=== PATIENT | male | born 1930 | race Caucasian/White ===

== ENCOUNTER 2018-03-16 11:56 | Day surgery (SDC) | payer MEDICARE, OTHER ==
[2018-03-16] VITALS (7 sets, daily range): BP systolic 136–155; BP diastolic 49–67; PULSE 44–51; TEMP 96.9–97.4
[~2018-03-16] VITALS: Ht 171.4 cm; Wt 90.8 kg
[~2018-03-16 11:56] MED LIST: ASPIRIN 81M81 MG/TA2 PO; FISH OIL 120 MG1 CAP PO; FLAXSEED OIL1 CAP PO; FLOMAX 0.40.4 MG/CAP PO; FOLIC ACID0.4 MG PO; GLUCOSAMINE & C1 TA3 PO; HCTZ 25MG TAB25 MG PO; IRON325 M1 PO; MILK OF MA400 MG/5 M PO; MULTIPLE VITAMI1 CAP PO; NATURAL POTASS595 MG PO; NORCO 325 MG-7.1 TAB PO; PRILOSEC 20MG20 MG PO; PRINIVIL20 MG PO; PROSCAR 5MG5 MG PO; ROXICODONE 55 MG/TAB PO; SENOKOT8.6 MG PO; TYLENOL 500MG500 MG PO; TYLENOL ARTHRI650 M1 PO; VITAMIN B-1000 MCG/T PO; VITAMIN C500 MG PO; VITAMIN D31000 IU PO; XARELTO10 MG PO
[2018-03-16] MEDS ORDERED: PROBIOTIC FORMU1 CAP PO (12:30)
[2018-03-16] MEDS ORDERED: FLAXSEED OIL1000 MG PO (12:30)
[2018-03-16] MEDS ORDERED: OMEGA-3 1000 MG1 CAP PO (12:31)
[2018-03-16] MEDS ORDERED: CINNAMON500 MG PO (12:31)
[2018-03-16] MEDS ORDERED: NATURE'S BLEND100 M2 PO (12:32)
[2018-03-16] MEDS ORDERED: NATURAL IRON65 MG PO (12:34)
[2018-03-16] MEDS ORDERED: TURMERIC500 MG PO (12:35)
[2018-03-16] MEDS ORDERED: ASPIRIN 81M81 MG/TA2 PO (12:36)
[2018-03-16] MEDS ORDERED: TYLENOL 8 HR PO (12:50)
[2018-03-16] MEDS ORDERED: VITAMIN C500 MG PO (13:15)
[2018-03-16] MEDS ORDERED: NATURAL E400 IU PO (13:17)
[2018-03-16] MEDS ORDERED: NIACIN 100100 MG/TAB PO (13:19)
[2018-03-16] MEDS ORDERED: BENADRYL25 M2 PO (13:20)
[2018-03-16] MEDS ORDERED: EXCEDRIN TENSIO1 CAP PO (13:20)
[2018-03-16] MEDS ORDERED: VITAMIN B-625 MG PO (13:20)
[2018-03-17 01:31] VITALS: BP 128/68; PULSE 56; TEMP 98.6
[2018-03-17 05:05] VITALS: BP 109/60; PULSE 56; TEMP 98.5
[2018-03-17 07:46] VITALS: BP 146/68; PULSE 60; TEMP 98.3
[2018-03-17 11:55] VITALS: BP 112/58; PULSE 59; TEMP 98.3
== END 2018-03-17 18:39 | disposition home or self-care (01) ==
LOC: SDCO 11:56 → SURG 16:32 → SDCO 03-17 18:39
DX: N21.0 Calculus in bladder (principal); N40.1 Benign prostatic hyperplasia with lower urinary tract symptoms; R35.1 Nocturia; R39.15 Urgency of urination; R35.0 Frequency of micturition; R39.12 Poor urinary stream; R33.9 Retention of urine, unspecified; M19.90 Unspecified osteoarthritis, unspecified site; K21.9 Gastro-esophageal reflux disease without esophagitis; E78.5 Hyperlipidemia, unspecified; I10 Essential (primary) hypertension; G89.29 Other chronic pain; D64.9 Anemia, unspecified; Z79.82 Long term (current) use of aspirin; Z88.8 Allergy status to other drugs, medicaments and biological substances; Z96.653 Presence of artificial knee joint, bilateral; Z87.891 Personal history of nicotine dependence; Z86.69 Personal history of other diseases of the nervous system and sense organs; Z82.49 Family history of ischemic heart disease and other diseases of the circulatory system
CPT/HCPCS: OP; J0690; J1100; J2250; J2405; J2704; J3010; J3480; J7120